=== PATIENT | male | born 2000 | race Caucasian/White ===

== ENCOUNTER 2019-06-10 20:04 | Emergency (ER) | payer MEDICAID ==
[~2019-06-10] VITALS: Ht 170.2 cm; Wt 99.8 kg
[2019-06-10 20:14] VITALS: Ht 170.2 cm; Wt 99.8 kg
[2019-06-10 21:20] VITALS: BP 114/72
== END 2019-06-10 21:20 | disposition home or self-care (01) ==
LOC: ED 20:04 → EDBD 20:04 → ED 21:20
DX: F41.9 Anxiety disorder, unspecified (principal); R07.89 Other chest pain; R06.02 Shortness of breath; R11.0 Nausea; R42 Dizziness and giddiness
CPT/HCPCS: Q0092; Q0162

== ENCOUNTER 2019-06-18 10:08 | Emergency (ER) | payer MEDICAID ==
[~2019-06-18] VITALS: Ht 170.2 cm; Wt 55.8 kg
[2019-06-18 10:24] VITALS: BP 123/79; Ht 170.2 cm; Wt 55.8 kg
== END 2019-06-18 11:42 | disposition home or self-care (01) ==
LOC: ED 10:08
DX: F41.9 Anxiety disorder, unspecified (principal); Z76.0 Encounter for issue of repeat prescription
CPT/HCPCS: G0480